=== PATIENT | male | born 1945 | race Caucasian/White ===

== ENCOUNTER 2018-11-19 15:20 | Emergency (ER) | payer MEDICARE ==
[~2018-11-19] VITALS: Ht 160 cm; Wt 83.1 kg
--- NOTE | 2018-11-19 15:55 | NUR ---
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
[2018-11-19] MEDS ORDERED: ASPIRIN 81 MG TABLET CHEW PO ONE (16:00)
[2018-11-19] MEDS ORDERED: ASPIRIN 81 MG TABLET CHEW ONE (16:43)
[2018-11-19 16:45] LABS: BASOPHILS # (AUTO) 0.09 x10^3/uL (0-0.1); BASOPHILS % (AUTO) 1 % (0-1); EOSINOPHILS # (AUTO) 0.07 x10^3/uL (0-0.4); EOSINOPHILS % (AUTO) 1 % (1-7); LYMPHOCYTES # (AUTO) 0.97 x10^3/uL (1-3.4); LYMPHOCYTES % (AUTO) 10 % (22-44); MD NO; MEAN CORPUSCULAR HEMOGLOBIN 32.3 pg (27.5-34.5); MEAN PLATELET VOLUME 7.9 fL (7.4-10.4); MONOCYTES # (AUTO) 0.63 x10^3/uL (0.2-0.8); MONOCYTES % (AUTO) 7 % (2-9); NEUTROPHILS # (AUTO) 7.88 x10^3/uL (1.8-6.8); NEUTROPHILS % (AUTO) 82 % (42-75); PLATELET COUNT 213 x10^3/uL (130-400); RED BLOOD COUNT 5.42 x10^6/uL (4.38-5.82)
[2018-11-19] MEDS ORDERED: METO-95 PO (16:49)
[2018-11-19] MEDS ORDERED: LOSA100T14 PO (16:49)
[2018-11-19] MEDS ORDERED: ATOR-2 PO (16:50)
[2018-11-19] MEDS ORDERED: EZET10TA18 PO (16:50)
[2018-11-19] MEDS ORDERED: AMLO-150 PO (16:50)
[2018-11-19] MEDS ORDERED: CHOL100012 PO (16:51)
[2018-11-19] MEDS ORDERED: OMEG1CAP23 PO (16:51)
[2018-11-19] MEDS ORDERED: ASPI-496 PO (16:51)
[2018-11-19] MEDS ORDERED: MULT-464 PO (16:52)
[2018-11-19] MEDS ORDERED: UBID100C41 PO (16:52)
[2018-11-19 16:58] LABS: ALBUMIN 4.2 g/dL (3.4-5.0); ANION GAP 6 mmol/L (5-15); CALCIUM 9.6 mg/dL (8.5-10.1); CHLORIDE 109 mmol/L (98-107)
[2018-11-19 17:04] LABS: ALANINE AMINOTRANSFERASE 71 U/L (12-78); ALKALINE PHOSPHATASE 67 U/L (45-117); BILIRUBIN,TOTAL 1.1 mg/dL (0.2-1.0); CREATININE 1.16 mg/dL (0.7-1.3); TOTAL PROTEIN 7.5 g/dL (6.4-8.2); TROPONIN I < 0.015 ng/mL (0.000-0.045)
--- NOTE | 2018-11-19 19:00 | NUR ---
[facility] BEDSIDE HAND-OFF REPORT GIVEN TO NANNETTE ESPINOSA.
--- NOTE | 2018-11-19 19:01 | NUR ---
report received from ashley berman.
[2018-11-19 19:23] VITALS: BP 116/67
--- NOTE | 2018-11-19 19:25 | NUR ---
pt given dc instructions. pt's aox4. resps even and unlabored. pt denies any pain at dc. py amb to br with steady gait. no acute distress at dc.
== END 2018-11-19 19:25 | disposition home or self-care (01) ==
LOC: ED 17:06
DX: R10.11 Right upper quadrant pain (principal); R10.84 Generalized abdominal pain
CPT/HCPCS: 36415; 71045; 76700; 80053; 83690; 84484; 85025; 93005; 99284

== ENCOUNTER 2019-03-10 12:49 | Outpatient (CLI) | payer MEDICARE | END 2019-03-10 23:59 | disposition home or self-care (01) | LOC: RAD 12:49 | PROVIDERS: ATTEND Family Medicine | DX: M48.07 Spinal stenosis, lumbosacral region (principal); M48.05 Spinal stenosis, thoracolumbar region | CPT/HCPCS: 72148 ==

== ENCOUNTER 2019-03-12 09:38 | Outpatient (CLI) | payer MEDICARE | END 2019-03-12 23:59 | disposition home or self-care (01) | LOC: CFH 09:38 | PROVIDERS: ATTEND Registered Nurse Registered Nurse First Assistant | DX: S33.140A Subluxation of L4/L5 lumbar vertebra, initial encounter (principal); M47.816 Spondylosis without myelopathy or radiculopathy, lumbar region; M41.86 Other forms of scoliosis, lumbar region; M48.061 Spinal stenosis, lumbar region without neurogenic claudication; M25.78 Osteophyte, vertebrae; X58.XXXA Exposure to other specified factors, initial encounter; Y93.89 Activity, other specified; Y92.89 Other specified places as the place of occurrence of the external cause; Y99.8 Other external cause status | CPT/HCPCS: 72110 ==

== ENCOUNTER 2019-07-21 10:50 | Outpatient (CLI) | payer MEDICARE ==
[~2019-07-21 10:50] MED LIST: AMLO-150 PO; ASPI-496 PO; ATOR-2 PO; CHOL100012 PO; EZET10TA70 PO; LOSA100T14 PO; METO-95 PO; MULT-464 PO; OMEG1CAP23 PO; UBID100C41 PO
[2019-07-21 12:05] LABS: BASOPHILS # (AUTO) 0.03 x10^3/uL (0-0.1); BASOPHILS % (AUTO) 0 % (0-1); EOSINOPHILS # (AUTO) 0.46 x10^3/uL (0-0.4); EOSINOPHILS % (AUTO) 5 % (1-7); LYMPHOCYTES # (AUTO) 3.42 x10^3/uL (1-3.4); LYMPHOCYTES % (AUTO) 34 % (22-44); MD NO; MEAN CORPUSCULAR HEMOGLOBIN 33.3 pg (27.5-34.5); MEAN CORPUSCULAR HGB CONC 33.3 g/dL (33.2-36.2); MEAN CORPUSCULAR VOLUME 100.1 fL (81-97); MEAN PLATELET VOLUME 7.2 fL (7.4-10.4); MONOCYTES # (AUTO) 0.79 x10^3/uL (0.2-0.8); MONOCYTES % (AUTO) 8 % (2-9); NEUTROPHILS # (AUTO) 5.48 x10^3/uL (1.8-6.8); NEUTROPHILS % (AUTO) 54 % (42-75); PLATELET COUNT 216 x10^3/uL (130-400); RED BLOOD COUNT 4.78 x10^6/uL (4.38-5.82); RED CELL DISTRIBUTION WIDTH 13.3 % (9.4-14.8)
[2019-07-21 12:08] LABS: CULTURE INDICATED? NO; MICROSCOPIC NOT IND
[2019-07-21 12:16] LABS: ANION GAP 7 mmol/L (5-15); CALCIUM 9.2 mg/dL (8.5-10.1); CHLORIDE 103 mmol/L (98-107)
[2019-07-21 12:20] LABS: ALANINE AMINOTRANSFERASE 63 U/L (12-78); ALKALINE PHOSPHATASE 47 U/L (45-117); BILIRUBIN,TOTAL 0.8 mg/dL (0.2-1.0); TOTAL PROTEIN 6.9 g/dL (6.4-8.2)
[2019-07-21 12:43] LABS: INTERNATIONAL NORMALIZED RATIO 0.94 (0.93-1.1); PROTHROMBIN TIME 9.9 Seconds (9.6-11.5)
[2019-07-21] MEDS ORDERED: HYDR25TA6 PO (13:19)
[2019-07-21] MEDS ORDERED: GABA-826 PO (13:19)
[2019-07-21] MEDS ORDERED: ACET-76 PO (13:19)
[2019-07-21] MEDS ORDERED: IBUP-1623 PO (13:19)
== END 2019-07-21 23:59 | disposition home or self-care (01) ==
LOC: STAR 10:50
PROVIDERS: ATTEND Neurological Surgery
DX: Z01.818 Encounter for other preprocedural examination (principal); M48.061 Spinal stenosis, lumbar region without neurogenic claudication; I45.10 Unspecified right bundle-branch block
CPT/HCPCS: 36415; 71046; 80053; 81003; 85025; 85610; 85730; 93005

== ENCOUNTER 2019-08-03 08:43 | Observation (INO) | payer MEDICARE ==
[~2019-08-03] VITALS: Ht 160 cm; Wt 85.3 kg
[~2019-08-03 08:43] MED LIST changes: +ACET-76 PO; +GABA-826 PO; +HYDR25TA6 PO; +IBUP-1623 PO
[2019-08-03] MEDS ORDERED: LACTATED RINGERS 1,000 ML IV ONE (09:04)
[2019-08-03] MEDS ORDERED: GABAPENTIN 300 MG CAPSULE PO STA (09:04)
[2019-08-03] MEDS ORDERED: ACETAMINOPHEN 500 MG TABLET PO STA (09:04)
[2019-08-03 09:28] VITALS: BP 183/102
[2019-08-03] MEDS ORDERED: AMLO-150 PO (09:28)
[2019-08-03] MEDS ORDERED: LABETALOL 5MG/ML, 20ML IV PRN (11:00)
[2019-08-03] MEDS ORDERED: OXYcodone 5 MG/5 ML ORAL.SOL UDC PO PRN (11:00)
[2019-08-03] MEDS ORDERED: hydrALAzine 20 MG/ML, 1ML IV PRN (11:00)
[2019-08-03] MEDS ORDERED: HYDROmorphone 2 MG/ML, 1ML IVPush PRN (11:00)
[2019-08-03] MEDS ORDERED: HALOPERIDOL 5 MG/ML IV PRN (11:00)
[2019-08-03] MEDS ORDERED: FENTANYL PF 100 MCG/2ML IV PRN (11:00)
[2019-08-03] MEDS ORDERED: MEPERIDINE/PF 25MG/ML,1ML IVPush PRN (11:00)
[2019-08-03] MEDS ORDERED: PROMETHAZINE 25 MG/ML, 1ML IV PRN (11:00)
[2019-08-03] MEDS ORDERED: FENTANYL PF 250 MCG/5ML ONE (12:15)
[2019-08-03] MEDS ORDERED: BACITRACIN 50,000 UNIT ONE (12:54)
[2019-08-03] MEDS ORDERED: methylPREDNISolone SOD SUCC 125 MG/2 ML ONE (12:54)
[2019-08-03] MEDS ORDERED: BUPIVACAINE/PF-EPI 0.25% 1:200K ONE (12:54)
[2019-08-03] MEDS ORDERED: THROMBIN (RECOMBINANT) 5,000 UNIT VIAL TP ONE (12:54)
[2019-08-03] MEDS ORDERED: ONDANSETRON 2MG/ML, 2ML ONE (14:41)
[2019-08-03] MEDS ORDERED: GLYCOPYRROLATE 0.2MG/1ML, 5ML ONE (14:41)
[2019-08-03] MEDS ORDERED: NEOSTIGMINE 1 MG/ML, 10ML ONE (14:41)
[2019-08-03] MEDS ORDERED: DEXAMETHASONE 4 MG/ML, 1ML ONE (14:41)
[2019-08-03] MEDS ORDERED: PROPOFOL 10 MG/ML, 20ML ONE (14:41)
[2019-08-03] MEDS ORDERED: SUCCINYLCHOLINE 20 MG/ML, 10ML ONE (14:41)
[2019-08-03] MEDS ORDERED: ROCURONIUM 10MG/ML,5ML ONE (14:41)
[2019-08-03] MEDS ORDERED: CEFAZOLIN 1,000 MG ONE (14:41)
[2019-08-03] MEDS ORDERED: HYDROmorphone PCA 30 MG/30 ML IV PRN (15:00)
[2019-08-03] MEDS ORDERED: PHARMACY MAY ADJ FOR RENAL FX MC PRN (15:00)
[2019-08-03] MEDS ORDERED: ONDANSETRON 2MG/ML, 2ML IVPush PRN (15:00)
[2019-08-03] MEDS ORDERED: LABETALOL 5MG/ML, 20ML IVPush PRN (15:00)
[2019-08-03] MEDS ORDERED: OXYcodone/APAP 5/325MG TABLET PO PRN (15:00)
[2019-08-03] MEDS ORDERED: TIZANIDINE 2MG TABLET PO PRN (15:00)
[2019-08-03] MEDS ORDERED: HYDROmorphone 1 MG/ML, 1ML INJ IVPush PRN (15:00)
[2019-08-03] MEDS ORDERED: MEPERIDINE/PF 100 MG/ML IM PRN (15:00)
[2019-08-03] MEDS ORDERED: DIAZEPAM 5 MG TABLET PO PRN (15:00)
[2019-08-03] MEDS ORDERED: BISACODYL 10 MG SUPP PR PRN (15:00)
[2019-08-03] MEDS ORDERED: DIPHENHYDRAMINE 50 MG/ML, 1ML IVPush PRN (15:00)
[2019-08-03] MEDS ORDERED: PROMETHAZINE 25 MG/ML, 1ML IM PRN (15:00)
[2019-08-03] MEDS ORDERED: MAGNESIUM HYDROXIDE 8%, 30ML UDC PO PRN (15:00)
[2019-08-03] MEDS ORDERED: HYDROcodone/APAP 10/325 MG TABLET PO PRN (15:00)
[2019-08-03] MEDS ORDERED: OXYcodone 5 MG/5 ML ORAL.SOL UDC ONE (15:08)
[2019-08-03] MEDS: GABAPENTIN 100 MG CAPSULE PO SCH ×2 (18:01→22:42)
[2019-08-03] MEDS: NS + 20MEQ KCL 1,000 ML IV SCH (18:01)
[2019-08-03] MEDS: SODIUM CHLORIDE FLUSH 10ML SYR IVF SCH (21:00)
[2019-08-03] MEDS ORDERED: ATORVASTATIN 80 MG TABLET PO SCH (21:00)
[2019-08-03] MEDS: CEFAZOLIN PMX 1GM/50ML 50 ML IVPB SCH (21:33)
[2019-08-04 00:40] VITALS: BP 161/89
[2019-08-04 03:06] VITALS: BP 153/83
[2019-08-04] MEDS: NS + 20MEQ KCL 1,000 ML IV SCH ×2 (05:20→11:00)
[2019-08-04] MEDS: CEFAZOLIN PMX 1GM/50ML 50 ML IVPB SCH (05:20)
[2019-08-04 06:57] VITALS: BP 163/80
[2019-08-04] MEDS ORDERED: HYDROCHLOROTHIAZIDE 25 MG TABLET PO SCH (09:00)
[2019-08-04] MEDS ORDERED: LOSARTAN 25MG TABLET PO SCH (09:00)
[2019-08-04] MEDS ORDERED: EZETIMIBE 10 MG TABLET PO SCH (09:00)
[2019-08-04] MEDS: GABAPENTIN 100 MG CAPSULE PO SCH (09:00)
[2019-08-04] MEDS ORDERED: METOPROLOL SUCCINATE 100 MG TAB.ER.24H PO SCH (09:00)
[2019-08-04] MEDS ORDERED: SENNA/DOCUSATE TABLET PO SCH (09:00)
[2019-08-04] MEDS ORDERED: AMLODIPINE 5 MG TABLET PO SCH (09:00)
[2019-08-04] MEDS ORDERED: OXYC-302 PO (09:13)
[2019-08-04] MEDS: SODIUM CHLORIDE FLUSH 10ML SYR IVF SCH (09:38)
[2019-08-04 10:36] VITALS: BP 139/76
[2019-08-04 12:01] VITALS: BP 132/76
== END 2019-08-04 13:07 | disposition home or self-care (01) ==
LOC: OUT 08:43 → ORIP 14:48 → 4NE 16:38 → DCLOUNGE 08-04 12:35
PROVIDERS: ADMIT Neurological Surgery; ATTEND Neurological Surgery
DX: M48.061 Spinal stenosis, lumbar region without neurogenic claudication (principal); I10 Essential (primary) hypertension; J45.909 Unspecified asthma, uncomplicated; I25.10 Atherosclerotic heart disease of native coronary artery without angina pectoris; E78.00 Pure hypercholesterolemia, unspecified; Z85.828 Personal history of other malignant neoplasm of skin; Z79.82 Long term (current) use of aspirin
CPT/HCPCS: 36415; 63047; 63048; 72100; 84295; 96365; 96366; 97116; 97162; 97165; G0378; J0330; J0690; J1100; J1170; J2405; J2704; J2710; J3010; J3480; J7120; 97163; J2930